=== PATIENT | male | born 1965 | race Caucasian/White ===

== ENCOUNTER 2016-10-23 18:59 | Observation (INO) | payer BC ==
[2016-10-23] MEDS ORDERED: SODIUM CHLORIDE 0.9% 1,000 ML IV ONE (19:41)
--- NOTE | 2016-10-23 19:46 | XR ---
EXAMINATION TYPE: XR chest 2V DATE OF EXAM: 10/23/2016 COMPARISON: 02/07/2014 HISTORY: 50-year-old male with chest pain TECHNIQUE: PA and lateral views FINDINGS: The heart is normal size. Aorta and pulmonary vasculature are within normal limits. Diffuse interstit ial prominence is unchanged from 2013. No consolidation or pleural effusion. Prior labral repair on t he left. IMPRESSION: Chronic changes, possible chronic bronchitis/asthma. No acute change.
[2016-10-23 19:52] LABS: Basophils # (A) 0.1 k/uL (0-0.2); Basophils % (A) 1 %; CH 33.2; CHCM 35.8; Eosinophils # (A) 0.1 k/uL (0-0.7); Eosinophils % (A) 1 %; HCT 41.9 % (39.0-53.0); HDW 2.66; Luc # (Auto) 0.13; Luc % (Auto) 1; Lymphocytes # (A) 2.1 k/uL (1.0-4.8); Lymphocytes % (A) 21 %; MCH 33.2 pg (25.0-35.0); MCHC 35.7 g/dL (31.0-37.0); Monocytes # (A) 0.6 k/uL (0-1.0); Monocytes % (A) 6 %; Neutrophils % (A) 70 %; RBC 4.51 m/uL (4.30-5.90); RDW 13.2 % (11.5-15.5); WBC (Perox) 10.08
[2016-10-23 20:05] LABS: Partial Thromboplastin Time 24.1 sec (22.0-30.0); Prothrombin Time 9.9 sec (9.0-12.0)
[2016-10-23 20:11] LABS: ALT 44 U/L (21-72); AST 32 U/L (17-59); Alkaline Phosphatase 138 U/L (38-126); Anion Gap 14 mmol/L; Blood Urea Nitrogen 14 mg/dL (9-20); Calcium 9.5 mg/dL (8.4-10.2); Carbon Dioxide 23 mmol/L (22-30); Chloride 104 mmol/L (98-107); Glucose 144 mg/dL (74-99); Magnesium 1.6 mg/dL (1.6-2.3); Non-African American GFR(MDRD) >60 (>60 ml/min/1.73 sqM); Potassium 4.1 mmol/L (3.5-5.1); Sodium 141 mmol/L (137-145); Total Bilirubin 0.6 mg/dL (0.2-1.3); Total Protein 7.1 g/dL (6.3-8.2)
[2016-10-23 20:12] LABS: Creatine Kinase 149 U/L (55-170)
[2016-10-23 20:25] LABS: Creatine Kinase MB 1.1 ng/mL (0.0-2.4); Troponin I <0.012 ng/mL (0.000-0.034)
[2016-10-23] MEDS ORDERED: ONDANSETRON 4 MG/2 ML VIAL IVP PRN (21:17)
[2016-10-23] MEDS ORDERED: NALOXONE 0.4 MG/ML 1 ML VIAL IV PRN (21:17)
[2016-10-23] MEDS ORDERED: ACETAMINOPHEN TAB 325 MG TAB PO PRN (21:17)
[2016-10-23] MEDS ORDERED: ASPIRIN 325 MG TAB PO STA (21:21)
[2016-10-23] MEDS ORDERED: DEXTROSE 5%-0.45% NACL 1,000 ML IV SCH (21:30)
--- NOTE | 2016-10-23 22:18 | ED ---
General Adult HPI - General Chief complaint: Chest Pain Stated complaint: chest pain Time Seen by Provider: 10/23/16 19:15 Source: patient, family, RN notes reviewed Mode of arrival: wheelchair Limitations: no limitations - History of Present Illness Initial comments: 50-year-old male presenting with chief complaint of chest tightness and heaviness. Patient was out on his boat throughout the day today, he was drinking a few beers. This is not atypical for the patient. He then had chest pain that was associated with right upper extremity tingling. Patient also reports shortness of breath with this episode. Denies any abdominal pain. Patient does have a history of diabetes, hypertension, hypercholesterolemia, and CAD. Patient states he did have a heart catheterization approximately 20 years ago, there was no intervention at that time. At the time my evaluation patient denies chest pain. Reports that while in his bathroom this evening he felt lightheaded, and collapsed just for a moment. This was not associated with chest pain. - Related Data Home Medications Medication Instructions Recorded Confirmed metFORMIN HCL [Metformin HCl ER] 1,000 mg PO BID 12/02/15 10/23/16 Atorvastatin (Unknown Dose) 1 tab PO HS 10/23/16 10/23/16 Fluticasone Nasal [place] [Flonase 1 spray EA NOSTRIL BID 10/23/16 10/23/16 Nasal [place]] amLODIPine [Norvasc] 10 mg PO DAILY 10/23/16 10/23/16 glipiZIDE [Glucotrol] 10 mg PO AC-BID 10/23/16 10/23/16 Allergies Allergy/AdvReac Type Severity Reaction Status Date / Time codeine Allergy Anaphylaxis Verified 10/23/16 19:46 Review of Systems ROS Statement: Those systems with pertinent positive or pertinent negative responses have been documented in the HPI. ROS Other: All systems not noted in ROS Statement are negative. Past Medical History Past Medical History: Diabetes Mellitus, Hyperlipidemia, Hypertension, Myocardial Infarction ([place]), Sleep Apnea/CPAP/BIPAP Additional Past Medical History / Comment(s): NV AGE 31, 1996 EST, TOLD R/T STRESS. OCC MILD HEARTBURN. USES CPAP. Last Myocardial Infarction Date:: 1996 History of Any Multi-Drug Resistant Organisms: None Reported Past Surgical History: Appendectomy, Back Surgery, Heart Catheterization, Orthopedic Surgery Additional Past Surgical History / Comment(s): LT Shoulder, LT Knee. Past Anesthesia/Blood Transfusion Reactions: No Reported Reaction Past Psychological History: No Psychological Hx Reported Smoking Status: Current every day smoker Past Alcohol Use History: Occasional Past Drug Use History: Cocaine, Marijuana - Past Family History Mother Family Medical History: No Reported History General Exam Limitations: no limitations General appearance: alert, in no apparent distress Head exam: Present: atraumatic, normocephalic Eye exam: Present: normal appearance, PERRL ENT exam: Present: normal exam, mucous membranes moist Neck exam: Present: normal inspection. Absent: tenderness Respiratory exam: Present: normal lung sounds bilaterally. Absent: respiratory distress, wheezes Cardiovascular Exam: Present: regular rate, normal rhythm GI/Abdominal exam: Present: soft. Absent: distended, tenderness Extremities exam: Present: normal inspection, normal capillary refill. Absent: pedal edema Neurological exam: Present: alert, oriented X3, CN II-XII intact. Absent: motor sensory deficit Psychiatric exam: Present: normal affect, normal mood Skin exam: Present: warm, dry. Absent: cyanosis, diaphoretic Course Vital Signs 10/23/16 10/23/16 10/23/16 19:03 20:04 21:21 Temperature 97.5 F L 98.1 F Pulse Rate 74 98 90 Respiratory 20 18 18 Rate Blood Pressure 132/96 167/77 141/69 O2 Sat by Pulse 98 98 96 Oximetry - Reevaluation(s) Reevaluation #1: 10/23/16 22:15 On reevaluation, patient denies chest pain or shortness of breath. EKG Findings - EKG Comments: EKG Findings:: EKG shows normal sinus rhythm with ventricular rate 99, ME interval 146, QS duration 76, QTC [address] there is no [address] segment elevation, no T-wave abnormality Medical Decision Making - Medical Decision Making 50-year-old male complaining of chest pain, right upper extremity tingling, mild shortness of breath and syncopal episode. Patient did report chest pain and shortness of breath. The symptoms have resolved. EKG is nonischemic. Laboratory studies including initial cardiac enzymes and d-dimer are normal. Patient remains asymptomatic while in the emergency department. Chest x-ray shows no acute process. Patient will be placed in observation for evaluation of syncope, and chest pain. Cardiology is placed on consult. Cardiac enzymes will be redrawn at 6 hours. - Lab Data Result diagrams: 10/23/16 19:20 10/23/16 19:20 Lab Results 10/23/16 10/23/16 10/23/16 Range/Units 19:20 19:20 19:20 WBC 10.0 (3.8-10.6) k/uL RBC 4.51 (4.30-5.90) m/uL Hgb 15.0 (13.0-17.5) gm/dL Hct 41.9 (39.0-53.0) % MCV 93.0 (80.0-100.0) fL MCH 33.2 (25.0-35.0) pg MCHC 35.7 (31.0-37.0) g/dL RDW 13.2 (11.5-15.5) % Plt Count 207 (150-450) k/uL Neutrophils % 70 % Lymphocytes % 21 % Monocytes % 6 % Eosinophils % 1 % Basophils % 1 % Neutrophils # 7.0 (1.3-7.7) k/uL Lymphocytes # 2.1 (1.0-4.8) k/uL Monocytes # 0.6 (0-1.0) k/uL Eosinophils # 0.1 (0-0.7) k/uL Basophils # 0.1 (0-0.2) k/uL PT (9.0-12.0) sec INR (<1.2) APTT (22.0-30.0) sec D-Dimer (<0.60) mg/L FEU Sodium 141 (137-145) mmol/L Potassium 4.1 (3.5-5.1) mmol/L Chloride 104 (98-107) mmol/L Carbon Dioxide 23 (22-30) mmol/L Anion Gap 14 mmol/L BUN 14 (9-20) mg/dL Creatinine 1.00 (0.66-1.25) mg/dL Est GFR (MDRD) Af Amer >60 (>60 ml/min/1.73 sqM) Est GFR (MDRD) Non-Af >60 (>60 ml/min/1.73 sqM) Glucose 144 H (74-99) mg/dL Calcium 9.5 (8.4-10.2) mg/dL Magnesium 1.6 (1.6-2.3) mg/dL Total Bilirubin 0.6 (0.2-1.3) mg/dL AST 32 (17-59) U/L ALT 44 (21-72) U/L Alkaline Phosphatase 138 H (38-126) U/L Total Creatine Kinase 149 (55-170) U/L CK-MB (CK-2) 1.1 (0.0-2.4) ng/mL CK-MB (CK-2) Rel Index 0.7 Troponin I <0.012 (0.000-0.034) ng/mL NT-Pro-B Natriuret Pep pg/mL Total Protein 7.1 (6.3-8.2) g/dL Albumin 4.3 (3.5-5.0) g/dL Lipase 256 (23-300) U/L Serum Alcohol mg/dL 10/23/16 10/23/16 10/23/16 Range/Units 19:20 19:20 19:20 WBC (3.8-10.6) k/uL RBC (4.30-5.90) m/uL Hgb (13.0-17.5) gm/dL Hct (39.0-53.0) % MCV (80.0-100.0) fL MCH (25.0-35.0) pg MCHC (31.0-37.0) g/dL RDW (11.5-15.5) % Plt Count (150-450) k/uL Neutrophils % % Lymphocytes % % Monocytes % % Eosinophils % % Basophils % % Neutrophils # (1.3-7.7) k/uL Lymphocytes # (1.0-4.8) k/uL Monocytes # (0-1.0) k/uL Eosinophils # (0-0.7) k/uL Basophils # (0-0.2) k/uL PT 9.9 (9.0-12.0) sec INR 1.0 (<1.2) APTT 24.1 (22.0-30.0) sec D-Dimer 0.55 (<0.60) mg/L FEU Sodium (137-145) mmol/L Potassium (3.5-5.1) mmol/L Chloride (98-107) mmol/L Carbon Dioxide (22-30) mmol/L Anion Gap mmol/L BUN (9-20) mg/dL Creatinine (0.66-1.25) mg/dL Est GFR (MDRD) Af Amer (>60 ml/min/1.73 sqM) Est GFR (MDRD) Non-Af (>60 ml/min/1.73 sqM) Glucose (74-99) mg/dL Calcium (8.4-10.2) mg/dL Magnesium (1.6-2.3) mg/dL Total Bilirubin (0.2-1.3) mg/dL AST (17-59) U/L ALT (21-72) U/L Alkaline Phosphatase (38-126) U/L Total Creatine Kinase (55-170) U/L CK-MB (CK-2) (0.0-2.4) ng/mL CK-MB (CK-2) Rel Index Troponin I (0.000-0.034) ng/mL NT-Pro-B Natriuret Pep 26 pg/mL Total Protein (6.3-8.2) g/dL Albumin (3.5-5.0) g/dL Lipase (23-300) U/L Serum Alcohol mg/dL 10/23/16 Range/Units 20:30 WBC (3.8-10.6) k/uL RBC (4.30-5.90) m/uL Hgb (13.0-17.5) gm/dL Hct (39.0-53.0) % MCV (80.0-100.0) fL MCH (25.0-35.0) pg MCHC (31.0-37.0) g/dL RDW (11.5-15.5) % Plt Count (150-450) k/uL Neutrophils % % Lymphocytes % % Monocytes % % Eosinophils % % Basophils % % Neutrophils # (1.3-7.7) k/uL Lymphocytes # (1.0-4.8) k/uL Monocytes # (0-1.0) k/uL Eosinophils # (0-0.7) k/uL Basophils # (0-0.2) k/uL PT (9.0-12.0) sec INR (<1.2) APTT (22.0-30.0) sec D-Dimer (<0.60) mg/L FEU Sodium (137-145) mmol/L Potassium (3.5-5.1) mmol/L Chloride (98-107) mmol/L Carbon Dioxide (22-30) mmol/L Anion Gap mmol/L BUN (9-20) mg/dL Creatinine (0.66-1.25) mg/dL Est GFR (MDRD) Af Amer (>60 ml/min/1.73 sqM) Est GFR (MDRD) Non-Af (>60 ml/min/1.73 sqM) Glucose (74-99) mg/dL Calcium (8.4-10.2) mg/dL Magnesium (1.6-2.3) mg/dL Total Bilirubin (0.2-1.3) mg/dL AST (17-59) U/L ALT (21-72) U/L Alkaline Phosphatase (38-126) U/L Total Creatine Kinase (55-170) U/L CK-MB (CK-2) (0.0-2.4) ng/mL CK-MB (CK-2) Rel Index Troponin I (0.000-0.034) ng/mL NT-Pro-B Natriuret Pep pg/mL Total Protein (6.3-8.2) g/dL Albumin (3.5-5.0) g/dL Lipase (23-300) U/L Serum Alcohol <10 mg/dL Disposition Clinical Impression: Chest pain, Syncope Disposition: ADMITTED IP TO THIS HOSP Condition: Stable Referrals: Buster Hardy III, MD [Primary Care Provider] - 1-2 days Decision to Admit Reason: Admit from EC Decision Date: 10/23/16 Decision Time: 21:20
[2016-10-23 23:10] VITALS: BMI 31.8
[2016-10-24 01:31] LABS: Creatine Kinase 121 U/L (55-170)
[2016-10-24 01:45] LABS: Creatine Kinase MB 0.8 ng/mL (0.0-2.4); Troponin I <0.012 ng/mL (0.000-0.034)
[2016-10-24 07:21] LABS: Anion Gap 9 mmol/L; Blood Urea Nitrogen 14 mg/dL (9-20); Calcium 8.6 mg/dL (8.4-10.2); Carbon Dioxide 22 mmol/L (22-30); Chloride 109 mmol/L (98-107); Glucose 68 mg/dL (74-99); Non-African American GFR(MDRD) >60 (>60 ml/min/1.73 sqM); Potassium 4.4 mmol/L (3.5-5.1); Sodium 140 mmol/L (137-145)
[2016-10-24 07:25] LABS: Basophils # (A) 0.1 k/uL (0-0.2); Basophils % (A) 1 %; CH 32.9; CHCM 34.8; Eosinophils # (A) 0.1 k/uL (0-0.7); Eosinophils % (A) 1 %; HCT 43.2 % (39.0-53.0); HDW 2.73; HGB 14.6 gm/dL (13.0-17.5); Luc # (Auto) 0.16; Luc % (Auto) 2; Lymphocytes # (A) 2.3 k/uL (1.0-4.8); Lymphocytes % (A) 27 %; MCHC 33.7 g/dL (31.0-37.0); MCV 94.9 fL (80.0-100.0); Monocytes # (A) 0.7 k/uL (0-1.0); Monocytes % (A) 8 %; Neutrophils # (A) 5.4 k/uL (1.3-7.7); Neutrophils % (A) 62 %; RBC 4.55 m/uL (4.30-5.90); WBC 8.8 k/uL (3.8-10.6); WBC (Perox) 8.59
[2016-10-24 07:28] LABS: Creatine Kinase 107 U/L (55-170)
[2016-10-24 07:41] LABS: Creatine Kinase MB 0.9 ng/mL (0.0-2.4); Troponin I <0.012 ng/mL (0.000-0.034)
--- NOTE | 2016-10-24 11:29 | ECHOF ---
Referral Reason:chest pain MEASUREMENTS -------- HEIGHT: 172.7 cm WEIGHT: 90.7 kg BP: IVSd: 1.1 cm (0.6 - 1.1) LVIDd: 4.3 cm (3.9 - 5.3) LVPWd: 0.7 cm (0.6 - 1.1) IVSs: 1.3 cm LVIDs: 3.3 cm LVPWs: 1.5 cm LAESV Index (A-L): 28.62 ml/m Ao Diam: 2.8 cm (2.0 - 3.7) AV Cusp: 2.2 cm (1.5 - 2.6) LA Diam: 3.9 cm (2.7 - 3.8) MV EXCURSION: 15.965 mm (> 18.000) MV EF SLOPE: 122 mm/s (70 - 150) EPSS: 0.1 cm MV E Jose Daniel: 0.75 m/s MV DecT: 140 ms MV A Jose Daniel: 0.43 m/s MV E/A Ratio: 1.73 RAP: 5.00 mmHg RVSP: 21.93 mmHg FINDINGS -------- Sinus rhythm. This was a technically adequate study. There is borderline concentric left ventricular hypertrophy. Overall left ventricular systolic function is normal with, an EF between 55 - 60 %. The right ventricle is normal in size. Normal LA size by volume 22+/-6 ml/m2. The right atrial size is normal. The aortic valve is trileaflet, and appears structurally normal. No aortic stenosis or regurgitation. Mild mitral regurgitation is present. Mild tricuspid regurgitation present. There is no evidence of pulmonary hypertension. The right ventricular systolic pressure, as measured by Doppler, is 21.93mmHg. There is no pulmonic regurgitation present. The aortic root size is normal. There is no pericardial effusion. CONCLUSIONS -------- 1. There is borderline concentric left ventricular hypertrophy. 2. Overall left ventricular systolic function is normal with, an EF between 55 - 60 %. 3. Mild mitral regurgitation is present. 4. Mild tricuspid regurgitation present. 5. There is no evidence of pulmonary hypertension. 6. The right ventricular systolic pressure, as measured by Doppler, is 21.93mmHg. DEFENSE ANALYST: Kayleigh Hillman RDCS
[2016-10-24] MEDS ORDERED: glipiZIDE 10 MG TAB PO SCH (11:45)
[2016-10-24 12:26] VITALS: BP 123/75; PULSE 65; RESP 16; TEMP 97.8
[2016-10-24 12:34] LABS: Glucose,Whole Blood 104 mg/dL (75-99)
--- NOTE | 2016-10-24 13:09 | P.HPIM ---
History of Present Illness H&P Date: 10/24/16 Chief Complaint: Chest pain This is a 50-year-old gentleman with a previous history of myocardial infarction in his 30s comes in to the hospital with this episode of difficulty breathing for a few hours thereafter noticed some chest tightness. Patient states that he was out on the boat and it is been drinking all day however this is his normal recent activity Patient went home thereafter tried to cool down with taken a shower patient apparently had a syncopal episode while he was in the shower Patient came in to the emergency room was admitted to the hospital. States that the chest pain resolved on its own. Chest pain was midsternal in location nonradiating no alleviating or exacerbating factors were reported States that he smokes about half a pack of At this time patient states that he was able to ambulate without much difficulty She was seen by her regulatory analyst underwent a stress test Review of Systems All systems: negative (Noted in HPI) Past Medical History Past Medical History: Diabetes Mellitus, Hyperlipidemia, Hypertension, Myocardial Infarction ([place]), Sleep Apnea/CPAP/BIPAP Additional Past Medical History / Comment(s): [place] AGE 31, 1996 EST, TOLD R/T STRESS. OCC MILD HEARTBURN. USES CPAP. Last Myocardial Infarction Date:: 1996 History of Any Multi-Drug Resistant Organisms: None Reported Past Surgical History: Appendectomy, Back Surgery, Heart Catheterization, Orthopedic Surgery Additional Past Surgical History / Comment(s): LT Shoulder, LT Knee. Past Anesthesia/Blood Transfusion Reactions: No Reported Reaction Smoking Status: Current every day smoker - Past Family History Mother Family Medical History: Hypertension Father Family Medical History: CVA/TIA Additional Family Medical History / Comment(s): at 43 Medications and Allergies Home Medications Medication Instructions Recorded Confirmed Type Atorvastatin [Lipitor] 40 mg PO HS 10/23/16 10/23/16 History Fluticasone Nasal [place] [Flonase 1 spray EA NOSTRIL BID 10/23/16 10/23/16 History Nasal [place]] Lisinopril [Zestril] 10 mg PO HS 10/23/16 10/23/16 History amLODIPine [Norvasc] 10 mg PO DAILY 10/23/16 10/23/16 History glipiZIDE [Glucotrol] 10 mg PO AC-BID 10/23/16 10/23/16 History metFORMIN HCL ER [Glucophage Xr] 2,000 mg PO W/SUPPER 10/24/16 10/24/16 History Allergies Allergy/AdvReac Type Severity Reaction Status Date / Time codeine Allergy Anaphylaxis Verified 10/23/16 22:57 Physical Exam Vitals: Vital Signs Temp Pulse Pulse Resp BP BP Pulse Ox 10/24/16 12:00 97.8 F 65 16 123/75 95 10/24/16 08:00 97.7 F 68 18 116/71 97 10/24/16 07:39 96 10/24/16 04:00 97.5 F L 60 15 115/61 98 10/23/16 23:25 18 10/23/16 22:50 97.9 F 80 15 155/73 94 L 10/23/16 22:34 90 18 134/68 98 10/23/16 21:21 98.1 F 90 18 141/69 96 10/23/16 20:04 98 18 167/77 98 10/23/16 19:03 97.5 F L 74 20 132/96 98 Intake and Output 10/23/16 10/24/16 10/24/16 22:59 06:59 14:59 Other: Voiding Method Toilet # Voids 1 1 Weight 92.8 kg 95.2 kg Physical exam Gen. appearance oriented 3 in no distress Neck is supple no JVD Lungs good air entry clear to auscultation no rhonchi or wheezing Heart S1-S2 heard regular rate and rhythm no murmurs appreciated Abdomen is soft nontender no organomegaly bowel sounds are intact Neurologically cranial nerves II-12 grossly intact no focal motor or sensory deficits noted Skin no abnormalities appreciated Results CBC & Chem 7: 10/24/16 06:36 10/24/16 06:36 Labs: Abnormal Lab Results - Last 24 Hours (Table) 10/23/16 10/24/16 10/24/16 Range/Units 19:20 06:36 12:31 Chloride 109 H (98-107) mmol/L Glucose 144 H 68 L (74-99) mg/dL POC Glucose (mg/dL) 104 H (75-99) mg/dL Alkaline Phosphatase 138 H (38-126) U/L Thrombosis Risk Factor Assmnt - Choose All That Apply Each Factor Represents 1 point: Age 41-60 years Thrombosis Risk Factor Assessment Total Risk Factor Score: 1 Thrombosis Risk Factor Assessment Level: Low Risk Assessment and Plan Plan: Atypical chest pain Syncope likely vagal Essential hypertension Diabetes mellitus type 2 Ongoing tobacco use Plan Patient is a moderate risk underwent a stress test is negative patient will be discharged home Smoking cessation was discussed
--- NOTE | 2016-10-24 13:16 | P.CRDCN ---
History of Present Illness Consult date: 10/24/16 Consult reason: chest pain History of present illness: This is a 50-year-old male who presented to the emergency department last night after experiencing chest pain while boating. He states he was sitting in the boat not exerting himself when he started to experience extreme shortness of breath accompanied by chest heaviness. He was drinking alcohol and was unclear whether it was related to food since he hadn't eaten all day. So he ate but the pain subsided. Shortness of breath grew increasingly worse until arriving in the ED which at that time he was placed on oxygen and he states the pain and shortness of breath went away. He has a history of previous [place] when he was 31 years old. He states he underwent a cardiac catheterization at that time and was told that he had arterial spasm and required no stenting. He has undergone two outpatient stress tests since then both unremarkable. His risk factors include diabetes mellitus, hyperlipidemia, hypertension, smoker. In examination he is seen sleeping in bed in no acute distress. He denies any further episodes of chest pain since arrival to the hospital. D-dimer was 0.55 , BNP 26, troponins negative 3. Review of Systems REVIEW OF SYSTEMS: Patient denies any chest discomfort. No shortness of breath. No diaphoresis. He denies headache, dizziness, blurred vision, double vision. No dyspnea on exertion. Patient denies any stomach discomfort. No nausea, vomiting. No hematochezia. No hematemesis. Denies any black stools or blood in his stools. No syncope. No palpitations. No cough. No recent fever or chills. Denies dysuria or hematuria. No muscle weakness or numbness. Past Medical History Past Medical History: Diabetes Mellitus, Hyperlipidemia, Hypertension, Myocardial Infarction ([place]), Sleep Apnea/CPAP/BIPAP Additional Past Medical History / Comment(s): [place] AGE 31, 1996 EST, TOLD R/T STRESS. OCC MILD HEARTBURN. USES CPAP. Last Myocardial Infarction Date:: 1996 History of Any Multi-Drug Resistant Organisms: None Reported Past Surgical History: Appendectomy, Back Surgery, Heart Catheterization, Orthopedic Surgery Additional Past Surgical History / Comment(s): LT Shoulder, LT Knee. Past Anesthesia/Blood Transfusion Reactions: No Reported Reaction Smoking Status: Current every day smoker Past Alcohol Use History: Occasional Additional Drug Use History / Comment(s): Patient states he used to use marijuana and cocaine but has not many years. - Past Family History Mother Family Medical History: Hypertension Father Family Medical History: CVA/TIA Additional Family Medical History / Comment(s): at 43 Medications and Allergies Home Medications Medication Instructions Recorded Confirmed Type Atorvastatin [Lipitor] 40 mg PO HS 10/23/16 10/23/16 History Fluticasone Nasal [place] [Flonase 1 spray EA NOSTRIL BID 10/23/16 10/23/16 History Nasal [place]] Lisinopril [Zestril] 10 mg PO HS 10/23/16 10/23/16 History amLODIPine [Norvasc] 10 mg PO DAILY 10/23/16 10/23/16 History glipiZIDE [Glucotrol] 10 mg PO AC-BID 10/23/16 10/23/16 History metFORMIN HCL ER [Glucophage Xr] 2,000 mg PO W/SUPPER 10/24/16 10/24/16 History Allergies Allergy/AdvReac Type Severity Reaction Status Date / Time codeine Allergy Anaphylaxis Verified 10/23/16 22:57 Physical Exam Vitals: Vital Signs Temp Pulse Pulse Resp BP BP Pulse Ox 10/24/16 12:00 97.8 F 65 16 123/75 95 10/24/16 08:00 97.7 F 68 18 116/71 97 10/24/16 07:39 96 10/24/16 04:00 97.5 F L 60 15 115/61 98 10/23/16 23:25 18 10/23/16 22:50 97.9 F 80 15 155/73 94 L 10/23/16 22:34 90 18 134/68 98 10/23/16 21:21 98.1 F 90 18 141/69 96 10/23/16 20:04 98 18 167/77 98 10/23/16 19:03 97.5 F L 74 20 132/96 98 Intake and Output 10/23/16 10/24/16 10/24/16 22:59 06:59 14:59 Other: Voiding Method Toilet # Voids 1 1 Weight 92.8 kg 95.2 kg GENERAL: This is a 50-year-old male in no apparent distress at the time of my examination. HEENT: Head is atraumatic, normocephalic. Pupils are equal, round. Sclerae anicteric. Conjunctivae are clear. Mucous membranes of the mouth are moist. Neck is supple. There is no jugular venous distention. No carotid bruit is heard. LUNGS: Clear to auscultation and precussion. No chest wall tenderness is noted on palpation or with deep breathing. HEART: Regular rate and rhythm without murmurs, rubs or gallops. S1 and S2 heard. ABDOMEN: Soft, nontender. Bowel sounds are heard. No organomegaly noted. EXTREMITIES: 2+ peripheral pulses with no evidence of peripheral edema and no calf tenderness noted]. NEUROLOGIC: Patient is awake, alert and oriented x3. Results 10/24/16 06:36 10/24/16 06:36 Cardiac Enzymes 10/23/16 10/23/16 10/24/16 Range/Units 19:20 19:20 00:41 AST 32 (17-59) U/L CK-MB (CK-2) 1.1 0.8 (0.0-2.4) ng/mL Troponin I <0.012 <0.012 (0.000-0.034) ng/mL 10/24/16 Range/Units 06:36 AST (17-59) U/L CK-MB (CK-2) 0.9 (0.0-2.4) ng/mL Troponin I <0.012 (0.000-0.034) ng/mL Coagulation 10/23/16 Range/Units 19:20 PT 9.9 (9.0-12.0) sec APTT 24.1 (22.0-30.0) sec CBC 10/23/16 10/24/16 Range/Units 19:20 06:36 WBC 10.0 8.8 (3.8-10.6) k/uL RBC 4.51 4.55 (4.30-5.90) m/uL Hgb 15.0 14.6 (13.0-17.5) gm/dL Hct 41.9 43.2 (39.0-53.0) % Plt Count 207 170 (150-450) k/uL Comprehensive Metabolic Panel 10/23/16 10/24/16 Range/Units 19:20 06:36 Sodium 141 140 (137-145) mmol/L Potassium 4.1 4.4 (3.5-5.1) mmol/L Chloride 104 109 H (98-107) mmol/L Carbon Dioxide 23 22 (22-30) mmol/L BUN 14 14 (9-20) mg/dL Creatinine 1.00 0.81 (0.66-1.25) mg/dL Glucose 144 H 68 L (74-99) mg/dL Calcium 9.5 8.6 (8.4-10.2) mg/dL AST 32 (17-59) U/L ALT 44 (21-72) U/L Alkaline Phosphatase 138 H (38-126) U/L Total Protein 7.1 (6.3-8.2) g/dL Albumin 4.3 (3.5-5.0) g/dL Current Medications Generic Name Dose Route Start Last Admin Trade Name Freq PRN Reason Stop Dose Admin Acetaminophen 650 mg 10/23/16 21:17 Tylenol Tab PO Q6HR PRN Mild Pain or Fever > 100.5 Glipizide 10 mg 10/24/16 11:45 10/24/16 12:52 Glucotrol PO 10 mg AC-BID JACK Administration Dextrose/Sodium Chloride 1,000 mls @ 75 mls/hr 10/23/16 21:30 10/23/16 23:49 Dextrose 5%-1/2ns Iv Soln IV 75 mls/hr .[id number] JACK Administration Naloxone HCl 0.2 mg 10/23/16 21:17 Narcan IV Q2M PRN Opioid Reversal Ondansetron HCl 4 mg 10/23/16 21:17 Zofran IVP Q8HR PRN Nausea And Vomiting Intake and Output 10/23/16 10/24/16 10/24/16 22:59 06:59 14:59 Other: Voiding Method Toilet # Voids 1 1 Weight 92.8 kg 95.2 kg 10/24/16 06:36 10/24/16 06:36 - Imaging and Cardiology Stress echo: image reviewed Echo: report reviewed - EKG Interpretation EKG: sinus rhythm, normal ST/T (No old EKG for comparison) Assessment and Plan Plan: ASSESSMENT 1. Chest pain, atypical. 2. Essential hypertension, controlled. 3. Diabetes mellitus. 4. Hyperlipidemia. 5. History of coronary artery spasm. PLAN Patient underwent exercise stress echo as well as resting echocardiogram. Echocardiogram reveals ejection fraction 55-60% with borderline left ventricular hypertrophy. Stress echo was normal, shows no signs of ST-T changes. From a cardiac standpoint the patient is stable for discharge home. He can follow-up with Dr. VC Tiwari in 2 weeks. Nurse Practitioner note has been reviewed, I agree with a documented findings and plan of care. Patient was seen and examined.
--- NOTE | 2016-10-24 15:15 | EST ---
Referral Reason:chest pain MEASUREMENTS -------- HEIGHT: 172.7 cm WEIGHT: 90.7 kg BP: 116/64 FINDINGS -------- Utilizing the standard Tuan protocol the patient was exercised for 10 minutes, 0 seconds, achieving a maximum heart rate of 144 , which is 85 % of predicted maximal heart rate. There was physiologic heart rate and blood pressure response to exercise. Max Heart Rate: 144 % of Max Predicted Heart Rate: 85 Rest Heart Rate: 102 Rest BP: 116/64 Max BP: 196/69 Mets Achieved: 11.6 The test was stopped because of shortness of breath. The test was stopped because the target heart rate was achieved. Sinus rhythm. In response to stress, the ECG showed no ST-T wave changes (see exercise report for details). LV size, wall thickness and systolic function are normal, with an EF of 60%. Echo images were acquired at peak stress which demonstrated appropriate augmentation of all left ventricular segments with slight decrease in cavity size. CONCLUSIONS -------- 1. Sinus rhythm. 2. In response to stress, the ECG showed no ST-T wave changes (see exercise report for details). 3. LV size, wall thickness and systolic function are normal, with an EF of 60%. 4. Echo images were acquired at peak stress which demonstrated appropriate augmentation of all left ventricular segments with slight decrease in cavity size. 5. No 2D echocardiographic evidence of inducible ischemia to achieved workload. CONCENTRATOR OPERATOR: Donnie Stewart RDCS MTDD
== END 2016-10-24 14:49 | disposition home or self-care (01) ==
LOC: EC 18:59 → 3OBS 21:17
PROVIDERS: ADMIT Internal Medicine; ATTEND Internal Medicine
DX: R07.89 Other chest pain (principal); R07.2 Precordial pain; R06.02 Shortness of breath; R55 Syncope and collapse; R20.2 Paresthesia of skin; I10 Essential (primary) hypertension; E11.9 Type 2 diabetes mellitus without complications; F17.200 Nicotine dependence, unspecified, uncomplicated; E78.00 Pure hypercholesterolemia, unspecified; E78.5 Hyperlipidemia, unspecified; I20.1 Angina pectoris with documented spasm; I25.10 Atherosclerotic heart disease of native coronary artery without angina pectoris; G47.30 Sleep apnea, unspecified; Z99.89 Dependence on other enabling machines and devices; Z79.84 Long term (current) use of oral hypoglycemic drugs; Z79.51 Long term (current) use of inhaled steroids; Z79.899 Other long term (current) drug therapy; Z88.5 Allergy status to narcotic agent; Z82.49 Family history of ischemic heart disease and other diseases of the circulatory system; Z82.3 Family history of stroke
CPT/HCPCS: 99285; 96360 ×2; 36415; 94760; 93005; 93017; 93306; 93350; 85379; 83880; 80053; 80048; 82550 ×2; 82553 ×2; 83690; 83735; 84484 ×2; 85025 ×2; 85610; 85730; 80320; 71020; G0378 ×2

== ENCOUNTER 2019-12-20 20:44 | Emergency (ER) | payer BC, OTHER ==
[2019-12-20 21:01] VITALS: RESP 18
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
[2019-12-20] MEDS ORDERED: SODIUM CHLORIDE 0.9% 1,000 ML IV STA (21:10)
[2019-12-20] MEDS ORDERED: KETOROLAC 15 MG/ML 1 ML VIAL IVP STA (21:11)
[2019-12-20] MEDS ORDERED: LIDOCAINE 5% PATCH TOPICAL STA (21:12)
[2019-12-20] MEDS ORDERED: CYCLOBENZAPRINE 10 MG TAB PO STA (21:12)
--- NOTE | 2019-12-20 22:10 | CT ---
EXAMINATION TYPE: CT lumbar spine wo con DATE OF EXAM: 12/20/2019 COMPARISON: None HISTORY: History of laminectomy right paraspinal tenderness CT DLP: 1086 mGycm CONTRAST: None TECHNIQUE: CT of the lumbar spine is performed on a spiral scan at 3 mm thick sections. Reconstructed images are performed in the coronal and sagittal planes. FINDINGS: T12-L1: No focal disc herniation or significant disc bulge is evident. No spinal canal stenosis or neural foraminal stenosis is present. L1-L2: No focal disc herniation or significant disc bulge is evident. No spinal canal stenosis or n eural foraminal stenosis is present L2-L3: Broad Based disc bulge has mild anterior thecal sac compression. No AP spinal canal stenosis p resent. Neural foramen are patent. L3-L4: Broad-based disc bulge is present with anterior thecal sac flattening. No AP spinal canal sten osis present. Mild ligamentum flavum laxity is present. Neural foramen are patent. L4-L5: Mild broad based disc bulge has mild to moderate anterior thecal sac compression. No AP spinal canal stenosis is present. Neural foramen are patent. L5-S1: Laminectomy has been performed at this level. There is fullness through the left epidural spac e. A sequestered disc could be considered. Granulation tissue should be considered. Severe bilateral foraminal stenosis present. Disc space narrowing is present. Vertebral alignment appears normal. IMPRESSION: 1.Acute changes not identified. 2. Degenerative disc changes and postsurgical changes in the left L5-S1 spinal canal. Additional work up with contrast MRI is recommended. 3. Mild disc bulging present L2-3, L3-4, L4-5
[2019-12-20] MEDS ORDERED: GABAPENTIN 300 MG CAP PO STA (22:16)
[2019-12-20 23:00] VITALS: BP 150/90; PULSE 96; TEMP 97.7
== END 2019-12-20 23:00 | disposition home or self-care (01) ==
LOC: EC 20:44
DX: M51.26 Other intervertebral disc displacement, lumbar region (principal); E11.9 Type 2 diabetes mellitus without complications; E78.5 Hyperlipidemia, unspecified; I10 Essential (primary) hypertension; I25.2 Old myocardial infarction; G47.33 Obstructive sleep apnea (adult) (pediatric); Z79.84 Long term (current) use of oral hypoglycemic drugs; Z79.899 Other long term (current) drug therapy; Z88.5 Allergy status to narcotic agent; Z99.89 Dependence on other enabling machines and devices; Z95.5 Presence of coronary angioplasty implant and graft; X50.0XXA Overexertion from strenuous movement or load, initial encounter
CPT/HCPCS: 72131; 99284; 96374; 96361; J1885

== ENCOUNTER → 2021-03-01 | Outpatient (CLI) | payer BC ==
[2021-03-01 14:00] LABS: African American GFR (CKD) >90 (>60 ml/min/1.73 sqM); Anion Gap 10 mmol/L; Blood Urea Nitrogen 25 mg/dL (9-20); Carbon Dioxide 21 mmol/L (22-30); Chloride 105 mmol/L (98-107); Non-African American GFR(CKD) 85 (>60 ml/min/1.73 sqM); Potassium 4.3 mmol/L (3.5-5.1); Sodium 136 mmol/L (137-145)
[2021-03-01 14:20] LABS: HCT 46.5 % (39.0-53.0); HGB 16.8 gm/dL (13.0-17.5); Hyperchromasia Slight; MCH 33.4 pg (25.0-35.0); MCHC 36.2 g/dL (31.0-37.0); MCV 92.5 fL (80.0-100.0); Mean Platelet Volume 7.7; Platelet Count 198 k/uL (150-450); RBC 5.03 m/uL (4.30-5.90); RDW 13.1 % (11.5-15.5); WBC 8.6 k/uL (3.8-10.6)
== END | disposition home or self-care (01) ==
LOC: LABPAT 13:21
PROVIDERS: ATTEND Internal Medicine Interventional Cardiology
DX: Z01.812 Encounter for preprocedural laboratory examination (principal); R07.9 Chest pain, unspecified
CPT/HCPCS: 36415; 80051; 82565; 84520; 85027

== ENCOUNTER 2021-03-11 06:32 | Day surgery (SDC) | payer BC ==
[2021-03-09 11:59] VITALS: BMI 31.7
[~2021-03-11 06:32] MED LIST: ALPRAZolam 0.25 MG TAB PO PRN; ALPRAZolam 0.5 MG TAB PO PRN; ASPIRIN 325 MG TAB PO STA; ATORVASTATIN 80 MG TAB PO STA; NITROGLYCERIN SL TABS 0.4 MG TAB SUBLINGUAL PRN; SODIUM CHLORIDE 0.9% 1,000 ML in EMPTY BAG 1 BAG IV SCH
[2021-03-11 06:59] VITALS: RESP 18; TEMP 97.8
[2021-03-11 07:13] LABS: Glucose,Whole Blood 150 mg/dL (75-99)
[2021-03-11] MEDS ORDERED: VERAPAMIL 2.5 MG/ML 2 ML AMP ONE (07:29)
[2021-03-11] MEDS ORDERED: LIDOCAINE 1% INJ 10MG/ML (20 ML MDV) ONE (07:29)
[2021-03-11] MEDS ORDERED: HEPARIN SODIUM 1,000 UN/ML (10ML VL) ONE (07:42)
[2021-03-11] MEDS ORDERED: MIDAZOLAM 2 MG/2 ML VIAL IV ONE (08:19)
[2021-03-11] MEDS ORDERED: LIDOCAINE 1% INJ 10MG/ML (20 ML MDV) SQ ONE (08:23)
[2021-03-11] MEDS: VERAPAMIL SYRINGE (5 MG/10 ML) INTRAARTER ONE ×2 (08:24→08:31)
[2021-03-11] MEDS ORDERED: HEPARIN SODIUM 1,000 UN/ML (10ML VL) IV ONE (08:27)
[2021-03-11] MEDS ORDERED: IOPAMIDOL-370 125ML BTL INJ ONE (08:31)
[2021-03-11] MEDS ORDERED: RX INFO: IV CONTRAST WAS GIVEN 1 EACH MISC MISCELLANE PRN (08:38)
[2021-03-11] MEDS ORDERED: SODIUM CHLORIDE 0.9% 1,000 ML IV SCH (08:45)
--- NOTE | 2021-03-11 12:54 | CC ---
CARDIAC CATHETERIZATION REPORT DATE OF SERVICE: 03/09/2021 PERFORMING PHYSICIAN: Manuel Bailey M.D. PROCEDURE PERFORMED: Selective right and left coronary angiogram. INDICATION: Chest discomfort in this 55-year-old gentleman with diabetes and hypertension and dyslipidemia who underwent myocardial perfusion imaging stress test and that revealed an anterior ischemia. APPROACH: Right radial artery. COMPLICATIONS: None. LEVEL OF SEDATION: Moderate, with sedation length of 11 minutes. PROCEDURE DESCRIPTION: After obtaining informed consent, the patient was brought to the cardiac solder making laborer. The right radial artery was cannulated using micropuncture technique. The micropuncture wire passed easily. Then I placed a 6-[place] sheath at the right radial artery. I gave the patient 2 mg of verapamil IA and 6000 units of heparin IV. Selective right and left coronary angiogram was performed using JR4 and JL3.5 catheters. Left heart catheterization was not performed but attempted. The procedure was completed without any complication. SELECTIVE CORONARY ANGIOGRAM: The RCA is a medium-caliber vessel. It is a dominant vessel. The RCA is angiographically normal. It bifurcates distally into PDA and PLV branches. Both appeared to be angiographically normal. Left main is angiographically normal. It bifurcates into LCX and LAD. The LCX is a large-caliber vessel. It is a nondominant vessel. The LCX is angiographically normal. It gives rise to first and second obtuse marginal branches. Both appeared to be angiographically normal. The first OM appeared to work as a ramus intermedius. The LAD is a medium-caliber vessel. The LAD proximally has mild disease only. The mid LAD has mild disease only. It gives rise to first and second diagonal branches. Both appeared to be angiographically normal. LAD distally appeared to be angiographically normal. CONCLUSION: 1. Mild nonobstructive coronary artery disease. 2. Possible component of coronary vasospasm noted. POST-PROCEDURE MANAGEMENT: 1. Medical treatment. 2. Follow up with the patient. MMODL / IJN: [id number] /
[2021-03-11 13:19] VITALS: BP 141/85; PULSE 86
== END 2021-03-11 12:49 | disposition home or self-care (01) ==
LOC: CATHCVL 06:32
PROVIDERS: ATTEND Internal Medicine Interventional Cardiology
DX: I25.10 Atherosclerotic heart disease of native coronary artery without angina pectoris (principal); E11.9 Type 2 diabetes mellitus without complications; I10 Essential (primary) hypertension; E78.5 Hyperlipidemia, unspecified; Z82.49 Family history of ischemic heart disease and other diseases of the circulatory system; F17.210 Nicotine dependence, cigarettes, uncomplicated; I08.1 Rheumatic disorders of both mitral and tricuspid valves; Z79.899 Other long term (current) drug therapy; Z20.822 Contact with and (suspected) exposure to COVID-19
CPT/HCPCS: 93454; 87635; C1894; J2250; J2001; J1644; Q9967

== ENCOUNTER 2023-03-28 10:14 | Emergency (ER) | payer BC ==
[2023-03-28 10:38] VITALS: RESP 18; TEMP 100
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
--- NOTE | 2023-03-28 11:18 | XR ---
EXAMINATION TYPE: XR chest 2V DATE OF EXAM: 03/28/2023 11:01 AM CLINICAL INDICATION:Male, 57 years old with history of SOB; [facility] COMPARISON: Chest radiographs from 11/15/2021. TECHNIQUE: XR chest 2V Frontal and lateral views of the chest. FINDINGS: Lungs/Pleura: Low lung volumes are present. There is no evidence of pleural effusion, focal consolida tion, or pneumothorax. Pulmonary vascularity: Unremarkable. Heart/mediastinum: Cardiomediastinal silhouette is unremarkable. Musculoskeletal: No acute osseous pathology. Other findings: None IMPRESSION: Low lung volumes with a generalized hazy appearance which could represent atelectasis.
[2023-03-28 12:34] LABS: Basophils # (A) 0.1 k/uL (0-0.2); Basophils % (A) 1 %; Eosinophils % (A) 0 %; HCT 49.4 % (39.0-53.0); HGB 17.2 gm/dL (13.0-17.5); Lymphocytes # (A) 0.7 k/uL (1.0-4.8); Lymphocytes % (A) 5 %; MCH 32.5 pg (25.0-35.0); MCHC 34.9 g/dL (31.0-37.0); Mean Platelet Volume 8.1; Monocytes # (A) 0.6 k/uL (0-1.0); Monocytes % (A) 5 %; Neutrophils # (A) 10.5 k/uL (1.3-7.7); Neutrophils % (A) 87 %; Platelet Count 153 k/uL (150-450); RBC 5.31 m/uL (4.30-5.90); RDW 12.2 % (11.5-15.5)
[2023-03-28] MEDS ORDERED: ACETAMINOPHEN TAB 325 MG TAB PO STA (12:48)
[2023-03-28] MEDS ORDERED: IBUPROFEN 800 MG TAB PO STA (12:48)
[2023-03-28 12:58] LABS: ALT 30 U/L (4-49); AST 31 U/L (17-59); African American GFR (CKD) >90 (>60 ml/min/1.73 sqM); Albumin 4.9 g/dL (3.5-5.0); Alkaline Phosphatase 134 U/L (38-126); Anion Gap 18 mmol/L; Blood Urea Nitrogen 21 mg/dL (9-20); Calcium 9.9 mg/dL (8.4-10.2); Carbon Dioxide 18 mmol/L (22-30); Chloride 99 mmol/L (98-107); Glucose 134 mg/dL (74-99); Non-African American GFR(CKD) 89 (>60 ml/min/1.73 sqM); Potassium 4.5 mmol/L (3.5-5.1); Sodium 135 mmol/L (137-145); Total Bilirubin 1.1 mg/dL (0.2-1.3); Total Protein 8.1 g/dL (6.3-8.2)
[2023-03-28 13:37] VITALS: BP 126/78; PULSE 90
== END 2023-03-28 13:36 | disposition home or self-care (01) ==
LOC: EC 10:14
DX: J10.1 Influenza due to other identified influenza virus with other respiratory manifestations (principal); E11.9 Type 2 diabetes mellitus without complications; E78.5 Hyperlipidemia, unspecified; I10 Essential (primary) hypertension; I21.9 Acute myocardial infarction, unspecified; G47.30 Sleep apnea, unspecified; F17.200 Nicotine dependence, unspecified, uncomplicated; Z79.82 Long term (current) use of aspirin; Z79.899 Other long term (current) drug therapy; Z88.5 Allergy status to narcotic agent; Z20.822 Contact with and (suspected) exposure to COVID-19
CPT/HCPCS: 36415; 71046; 80053; 85025; 87636; 93005; 99285

== ENCOUNTER 2024-03-24 23:22 | Observation (INO) | payer BC ==
[2024-03-24] MEDS: SODIUM CHLORIDE 0.9% 1,000 ML IV ONE (23:38)
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
[2024-03-24] MEDS: ONDANSETRON 4 MG/2 ML VIAL IVP STA (23:42)
[2024-03-24] MEDS: HYDROmorphone 0.5 MG/0.5 ML SYRINGE IVP STA (23:43)
[2024-03-24] MEDS: FAMOTIDINE 20 MG/2 ML VIAL IV STA (23:45)
[2024-03-25 00:32] LABS: Basophils # (A) 0.1 k/uL (0-0.2); Basophils % (A) 0 %; Eosinophils # (A) 0.1 k/uL (0-0.7); Eosinophils % (A) 1 %; HGB 15.9 gm/dL (13.0-17.5); Lymphocytes # (A) 1.4 k/uL (1.0-4.8); Lymphocytes % (A) 11 %; MCH 32.2 pg (25.0-35.0); MCHC 34.6 g/dL (31.0-37.0); MCV 93.2 fL (80.0-100.0); Mean Platelet Volume 7.2; Monocytes # (A) 0.6 k/uL (0-1.0); Monocytes % (A) 5 %; Neutrophils # (A) 10.8 k/uL (1.3-7.7); Neutrophils % (A) 82 %; Platelet Count 169 k/uL (150-450); RBC 4.94 m/uL (4.30-5.90); RDW 12.4 % (11.5-15.5); WBC 13.2 k/uL (3.8-10.6)
[2024-03-25 00:41] LABS: ALT 23 U/L (4-49); AST 21 U/L (17-59); African American GFR (CKD) >90 (>60 ml/min/1.73 sqM); Albumin 4.3 g/dL (3.5-5.0); Alcohol <10 mg/dL; Alkaline Phosphatase 153 U/L (38-126); Anion Gap 13 mmol/L; Blood Urea Nitrogen 19 mg/dL (9-20); Calcium 8.9 mg/dL (8.4-10.2); Carbon Dioxide 21 mmol/L (22-30); Chloride 104 mmol/L (98-107); Glucose 168 mg/dL (74-99); Lipase 254 U/L (23-300); Magnesium 1.8 mg/dL (1.6-2.3); Non-African American GFR(CKD) >90 (>60 ml/min/1.73 sqM); Potassium 4.1 mmol/L (3.5-5.1); Sodium 138 mmol/L (137-145); Total Bilirubin 0.4 mg/dL (0.2-1.3); Total Protein 6.9 g/dL (6.3-8.2)
[2024-03-25 00:44] LABS: INR 0.9 (<1.2); Partial Thromboplastin Time 23.2 sec (22.0-30.0); Prothrombin Time 10.3 sec (10.0-12.5)
[2024-03-25] MEDS: HYDROmorphone 1 MG/ML 1 ML SYRINGE IVP STA ×2 (01:03→04:18)
--- NOTE | 2024-03-25 02:05 | XR ---
EXAM: XR Chest, 1 View CLINICAL HISTORY: ITS.REASON XR Reason: chest pain TECHNIQUE: Frontal view of the chest. COMPARISON: No relevant prior studies available. FINDINGS: Lungs: No consolidation or mass. Pleural space: No acute findings. Heart: Mild cardiomegaly. Bones/joints: No acute findings. IMPRESSION: No acute cardiopulmonary process.
--- NOTE | 2024-03-25 02:56 | CT ---
EXAM: CT Angiography Chest Abdomen and Pelvis With Intravenous Contrast CLINICAL HISTORY: ITS.REASON CT Reason: CP/BP TECHNIQUE: Axial computed tomographic angiography images of the chest abdomen and pelvis with intravenous contrast. CTDI is 11.1 mGy and DLP is 730.2 mGy- cm. This CT exam was performed using one or more of the following dose reduction techniques: automated exposure control, adjustment of the mA and/or kV according to patient size, and/or use of iterative reconstruction technique. MIP reconstructed images were created and reviewed. COMPARISON: None. FINDINGS: Mild/moderate cardiomegaly. Left coronary arterial/LAD diffuse atherosclerosis (series 201 image 16).. VASCULATURE: Thoracic aorta: Moderate calcification of the aortic arch/descending aorta. Thoracic aorta and pulmonary arteries are normal in caliber. No main/central pulmonary arterial embolism. Distally evaluation is suboptimal due to technical factors. Abdominal Aorta: Extensive densely calcified/noncalcified atherosclerosis. No acute findings. No abdominal aortic aneurysm. No dissection. Celiac trunk and mesenteric arteries: Small focal calcification at the ostium of the celiac trunk with <50% luminal narrowing. Moderately bulky calcification of the proximal SMA with 50-70% luminal narrowing (series 504 image 84, series 201 image 52). No acute findings. No occlusion. Renal arteries: Single right and left renal artery with small ostial foci of calcifications. No acute findings. No occlusion or significant stenosis. Iliac arteries: Heavy calcification of the proximal most right common iliac artery with about 70% stenosis (series 502 image 70, series 201 image 76). No acute findings. No occlusion. Diffuse calcified/noncalcified atherosclerosis of bilateral common femoral arteries with 50-70% stenosis RT>LT. Images of the runoff lower extremities not obtained/not provided. Ancillary findings: CHEST Lung : Central airways are patent. Bilateral bronchial wall cuffing and interstitial/septal thickening with predominantly basilar patchy parenchymal groundglass opacities, concerning for mild pulmonary edema.. No mass. No consolidation. No significant mediastinal/hilar lymphadenopathy. Small likely reactive subcarinal and right hilar lymph nodes. No pleural or pericardial effusion. ABDOMEN: Liver: Diffuse fatty hepatic infiltration. Demonstrates multiple ill- defined enhancing lesions throughout the liver, largest is 2.6 cm in the right hepatic lobe anteriorly, benign versus malignant (series 501 image 83, series 502 image 36). Gallbladder and bile ducts: Distended gallbladder. A few small calcified stones. No ductal dilation. Pancreas: Unremarkable. No ductal dilation. No mass. Spleen: Unremarkable. No splenomegaly. Adrenals: Thickening of the left adrenal gland. Unremarkable right adrenal gland. Kidneys and ureters: Anteriorly a 2.3 cm left renal cyst.. No hydronephrosis. No solid mass. Stomach and bowel: A distended stomach filled with ingested food debris and gas. Probably a small gastroesophageal reflux. Nonspecific mucosal wall thickening of the hepatic flexure, colitis versus incomplete distention. Diffuse segmental spasm versus colitis of the transverse and descending colon (series 501 image 41, series 502,82). Moderate volume stool seen in the right side colon and in rectosigmoid. PELVIS: Appendix: No acute findings in the region of the appendix. Bladder: Distended bladder.. No mass. Reproductive: Unremarkable as visualized. ABDOMEN and PELVIS: Intraperitoneal space: No significant fluid collection. No free air. Bones/joints: No acute fracture. No dislocation. At L5-S1 moderately advanced degenerative spondylitic changes seen. Soft tissues: Unremarkable. Lymph nodes: Unremarkable. No enlarged lymph nodes. Other findings: . IMPRESSION: Cardiomegaly with probably mild pulmonary edema.. Diffuse calcified/noncalcified atherosclerotic disease of the thoracoabdominal aortoiliac vasculature and branch vessels as described above. No aortic aneurysm or dissection. Significant atherosclerosis of the aortic bifurcation vessels/iliac arteries RT>LT. Multiple hepatic enhancing lesions, benign versus malignant. Recommend follow-up. Nonspecific mucosal thickening of the hepatic flexure, acute colitis versus incomplete distention. Diffuse segmental spasm versus colitis of the transverse and descending colon. Clinical correlation is advised. Distended gallbladder. Cholelithiasis. Additional findings as described above. _
[2024-03-25] MEDS ORDERED: ACETAMINOPHEN TAB 325 MG TAB PO PRN (03:37)
[2024-03-25] MEDS ORDERED: NALOXONE 0.4 MG/ML 1 ML VIAL IV PRN (03:37)
[2024-03-25] MEDS ORDERED: ONDANSETRON 4 MG/2 ML VIAL IVP PRN (03:37)
[2024-03-25] MEDS ORDERED: DEXTROSE 50% SYRINGE 50 ML IVP PRN ×2 (07:29)
[2024-03-25 07:34] LABS: Glucose,Whole Blood 137 mg/dL (70-110)
[2024-03-25] MEDS: INSULIN ASPART (NovoLOG) 100 UNIT/ML VIAL SQ SCH (07:34)
[2024-03-25] MEDS: HYDROmorphone 0.5 MG/0.5 ML SYRINGE IVP PRN (07:39)
[2024-03-25] MEDS: amLODIPine 10 MG TAB PO SCH (08:15)
[2024-03-25] MEDS: ATORVASTATIN 40 MG TAB PO SCH (08:15)
[2024-03-25] MEDS: ASPIRIN 81 MG PO SCH (08:15)
[2024-03-25] MEDS: lisinopriL 10 MG TAB PO SCH (08:16)
[2024-03-25] MEDS ORDERED: METOPROLOL TARTRATE 25 MG TAB PO SCH (09:00)
[2024-03-25] MEDS ORDERED: AMINOPHYLLINE 500 MG/20 ML VIAL IV PRN (09:35)
[2024-03-25] MEDS ORDERED: REGADENOSON 0.4 MG/5 ML SYRINGE IV PRN (09:35)
[2024-03-25] MEDS ORDERED: CAFFEINE CITRATE 60 MG/3 ML VIAL IV PRN (09:35)
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
--- NOTE | 2024-03-25 12:45 | P.CRDCN ---
History of Present Illness History of present illness: HISTORY OF PRESENT ILLNESS: This is a 58-year-old male with a past medical history significant for coronary artery disease, hypertension, hyperlipidemia, diabetes, nicotine dependence and obesity. Patient follows in the office with Dr. Bailey but has not been seen in the office since February 2021. We have been asked to see the patient in consultation for chest pain. Patient examined at the bedside in the emergency room. Patient states he has been having chest pain on and off for the past few weeks. He states the pain is in the middle of his chest and also radiates into his back. He states there is nothing really specific that brings it on. He does have chest tightness with deep inspiration. He also has chest pain with palpation of his left lower chest. He does report a history of chronic back pain and is scheduled to have an MRI of his neck and his back in a few days. DIAGNOSTICS: - EKG reveals sinus bradycardia with no signs of acute ischemia. Repeat EKG reveals sinus mechanism with no signs of acute ischemia - Chest xray negative for acute findings - Laboratory data: WBC 13.2. Hemoglobin 15.9. Platelet count 169. Sodium 138. Potassium 4.1. BUN 19. Creatinine 0.92. Troponin negative x 2. Alcohol less than 10. - Current home cardiac medications include amlodipine 10 mg daily, lisinopril 10 mg daily, Jardiance 25 mg daily, metoprolol succinate 25 mg daily, atorvastatin 40 mg daily - Most recent echocardiogram obtained in January 2021 revealed ejection fraction 55 to 60%, mild LVH, trace MR, trace TR - Cardiac catheterization history: February 2021 revealing mild nonobstructive CAD with possible component of coronary vasospasm REVIEW OF SYSTEMS: At the time of my exam: CONSTITUTIONAL: Denies fever or chills. HEENT: Denies blurred vision, vision changes, or eye pain. Denies hemoptysis CARDIOVASCULAR: Denies chest pain. Denies orthopnea. Denies PND. Denies palpitations RESPIRATORY: Denies shortness of breath. GASTROINTESTINAL: Denies abdominal pain. Denies nausea or vomiting. HEMATOLOGIC: Denies bleeding disorders. GENITOURINARY: Denies any blood in urine. SKIN: Denies pruitis. Denies rash. PHYSICAL EXAM: VITAL SIGNS: Reviewed. GENERAL: Well-developed in no acute distress. HEENT: Head is normocephalic. Pupils are equal, round. Sclerae anicteric. Mucous membranes of the mouth are moist. Neck supple. No JVD or thyromegaly LUNGS: Respirations even and unlabored. Lungs essentially clear to auscultation bilaterally. HEART: Regular rate and rhythm. S1 and S2 heard. ABDOMEN: Soft. Nondistended. Nontender. EXTREMITIES: Normal range of motion. No clubbing or cyanosis. Peripheral pulses intact. No lower extremity edema NEUROLOGIC: Awake and alert. Oriented x 3. ASSESSMENT: Chest pain Mild nonobstructive CAD, per cath 2020 with possible component of vasospasm Hypertension Hyperlipidemia Diabetes Chronic back pain Nicotine dependence Obesity: BMI 34.9 Daily alcohol use, 2-4 per day PLAN: An acute coronary but has been ruled out Obtain 2D echo to assess cardiac structure and function Resume home cardiac medications Patient to undergo Lexiscan stress test today Further recommendations pending patient course Nurse practitioner note has been reviewed by physician. Signing provider agrees with the documented findings, assessment, and plan of care documented by BANDOLEER [employer]ENER STAMPER as a scribe. Past Medical History Past Medical History: Diabetes Mellitus, Hyperlipidemia, Hypertension, My ocardial Infarction ([place]), Sleep Apnea/CPAP/BIPAP Additional Past Medical History / Comment(s): [place] AGE 31, 1996 EST, TOLD R/T STRESS. OCC MILD HEARTBURN. USES CPAP. Last Myocardial Infarction Date:: 1996 History of Any Multi-Drug Resistant Organisms: None Reported Past Surgical History: Appendectomy, Back Surgery, Heart Catheterization, Orthopedic Surgery Additional Past Surgical History / Comment(s): LT Shoulder, LT Knee. Past Anesthesia/Blood Transfusion Reactions: No Reported Reaction Past Psychological History: No Psychological Hx Reported Smoking Status: Current every day smoker Past Alcohol Use History: Occasional - Past Family History Mother Family Medical History: Hypertension Father Family Medical History: CVA/TIA Additional Family Medical History / Comment(s): at 43 Medications and Allergies Home Medications Medication Instructions Recorded Confirmed Type Atorvastatin [Lipitor] 40 mg PO DAILY 10/23/16 03/25/24 History Fluticasone Nasal Irene [Flonase 2 spray EA NOSTRIL BID 10/23/16 03/25/24 History Nasal Irene] amLODIPine [Norvasc] 10 mg PO DAILY 10/23/16 03/25/24 History lisinopriL [Zestril] 10 mg PO DAILY 10/23/16 03/25/24 History Dulaglutide [Trulicity] 1.5 mg SQ MO 12/20/19 03/25/24 History Empagliflozin [Jardiance] 25 mg PO DAILY 12/20/19 03/25/24 History tadalafiL [Cialis] 20 mg PO DAILY PRN 03/09/21 03/25/24 History Ibuprofen [Motrin] 800 mg PO TID PRN 03/25/24 03/25/24 History Metoprolol Succinate (ER) [Toprol 25 mg PO DAILY 03/25/24 03/25/24 History Xl] Testosterone [Androgel 1%] 1 packet TRANSDERM DAILY 03/25/24 03/25/24 History metFORMIN HCL ER [Glucophage XR] 500 mg PO BID 03/25/24 03/25/24 History Allergies Allergy/AdvReac Type Severity Reaction Status Date / Time codeine Allergy Anaphylaxis Verified 03/25/24 11:22 Physical Exam Vitals: Vital Signs Temp Pulse Resp BP Pulse Ox 03/25/24 08:14 92 18 137/77 97 03/25/24 06:00 80 18 137/80 988 H 03/25/24 05:00 83 16 141/82 96 03/25/24 04:00 80 19 134/70 96 03/25/24 03:00 86 21 147/81 99 03/25/24 02:00 87 22 136/84 95 03/25/24 01:33 73 18 137/78 96 03/25/24 00:33 77 22 140/76 97 03/24/24 23:33 62 18 118/82 97 03/24/24 23:30 98.0 F 55 L 18 114/73 97 Intake and Output 03/24/24 03/25/24 03/25/24 22:59 06:59 14:59 Other: Weight 95.254 kg Results 03/25/24 00:07 03/25/24 00:07 Cardiac Enzymes 03/25/24 03/25/24 03/25/24 Range/Units 00:07 00:07 06:47 AST 21 (17-59) U/L Troponin I <0.012 <0.012 (0.000-0.034) ng/mL Coagulation 03/25/24 Range/Units 00:07 PT 10.3 (10.0-12.5) sec APTT 23.2 (22.0-30.0) sec CBC 03/25/24 Range/Units 00:07 WBC 13.2 H (3.8-10.6) k/uL RBC 4.94 (4.30-5.90) m/uL Hgb 15.9 (13.0-17.5) gm/dL Hct 46.0 (39.0-53.0) % Plt Count 169 (150-450) k/uL Comprehensive Metabolic Panel 03/25/24 Range/Units 00:07 Sodium 138 (137-145) mmol/L Potassium 4.1 (3.5-5.1) mmol/L Chloride 104 (98-107) mmol/L Carbon Dioxide 21 L (22-30) mmol/L BUN 19 (9-20) mg/dL Creatinine 0.92 (0.66-1.25) mg/dL Glucose 168 H (74-99) mg/dL Calcium 8.9 (8.4-10.2) mg/dL AST 21 (17-59) U/L ALT 23 (4-49) U/L Alkaline Phosphatase 153 H (38-126) U/L Total Protein 6.9 (6.3-8.2) g/dL Albumin 4.3 (3.5-5.0) g/dL Current Medications Generic Name Dose Route Start Last Admin Trade Name Freq PRN Reason Stop Dose Admin Acetaminophen 650 mg 03/25/24 03:37 Acetaminophen Tab 325 Mg Tab PO Q6HR PRN Mild Pain or Fever > 100.5 Amlodipine Besylate 10 mg 03/25/24 09:00 03/25/24 08:15 Amlodipine 10 Mg Tab PO 10 mg DAILY JACK Administration Aspirin 81 mg 03/25/24 09:00 03/25/24 08:15 Aspirin 81 Mg PO 81 mg QAM JACK Administration Atorvastatin Calcium 40 mg 03/25/24 09:00 03/25/24 08:15 Atorvastatin 40 Mg Tab PO 40 mg DAILY JACK Administration Dextrose/Water 25 ml 03/25/24 07:29 Dextrose 50% Syringe 50 Ml IVP PER PROTOCOL PRN Hypoglycemia Protocol Dextrose/Water 50 ml 03/25/24 07:29 Dextrose 50% Syringe 50 Ml IVP PER PROTOCOL PRN Hypoglycemia Protocol Hydromorphone HCl 0.5 mg 03/25/24 03:37 03/25/24 07:39 Hydromorphone 0.5 Mg/0.5 Ml Syringe IVP 0.5 mg Q3HR PRN Administration Moderate Pain (Scale 4 to 6) Insulin Aspart 0 unit 03/25/24 07:30 03/25/24 07:34 Insulin Aspart (Novolog) 100 Unit/Ml Vial SQ Not Given ACHS JACK Protocol Lisinopril 10 mg 03/25/24 09:00 03/25/24 08:16 Lisinopril 10 Mg Tab PO 10 mg DAILY JACK Administration Metoprolol Tartrate 25 mg 03/25/24 09:00 Metoprolol Tartrate 25 Mg Tab PO QAM JACK Naloxone HCl 0.2 mg 03/25/24 03:37 Naloxone 0.4 Mg/Ml 1 Ml Vial IV Q2M PRN Opioid Reversal Ondansetron HCl 4 mg 03/25/24 03:37 Ondansetron 4 Mg/2 Ml Vial IVP Q8HR PRN Nausea And Vomiting Intake and Output 03/24/24 03/25/24 03/25/24 22:59 06:59 14:59 Other: Weight 95.254 kg 03/25/24 00:07 03/25/24 00:07
[2024-03-25 12:54] VITALS: RESP 16
[2024-03-25 13:06] LABS: Glucose,Whole Blood 144 mg/dL (70-110)
[2024-03-25 13:07] LABS: Appearance,Urine Clear (Clear); Bilirubin,Urine Negative (Negative); Blood,Urine Negative (Negative); Color,Urine Colorless; Glucose,Urine (UA) 4+ (Negative); Ketones,Urine Negative (Negative); Leukocyte Esterase,Urine Negative (Negative); Nitrite,Urine Negative (Negative); PH, Urine 5.5 (5.0-8.0); Protein,Urine Negative (Negative); Specific Gravity,Urine 1.042 (1.001-1.035); Urobilinogen,Urine <2.0 mg/dL (<2.0)
--- NOTE | 2024-03-25 13:39 | NM ---
EXAMINATION TYPE: NM stress lexiscan cardiolite DATE OF EXAM: 03/25/2024 COMPARISON: NONE CLINICAL INDICATION: Male, 58 years old with history of chest pain; TECHNIQUE: After the intravenous administration of 8.38 mCi Tc 99m Sestamibi - Cardiolite resting SP ECT images acquired 55 minutes post injection. The patient received 0.4mg Lexiscan, 20.8 mCi Tc 99m Sestamibi - Stress images obtained [address] injection FINDINGS: Review of stress and rest SPECT images demonstrates some decreased perfusion along the anteroseptal w all appear more pronounced on rest suggesting attenuation artifact. Otherwise, no distinct perfusion abnormality. Gated analysis shows normal wall motion but with an estimated left ventricular ejection fraction calculated at 47 %. TID upper limits of normal 1.05. IMPRESSION: 1. Suggestion of some attenuation artifact along the anteroseptal wall. 2. Estimated LVEF mildly diminished at 47%. Further evaluation is clinically indicated. 3. Otherwise, no scintigraphic evidence for reversible ischemia. [facility], , 03/25/2024 1:37 PM
--- NOTE | 2024-03-25 14:06 | P.DS ---
Providers Date of admission: 03/25/24 03:37 Expected date of discharge: 03/25/24 Attending physician: Niko Damon Consults: 03/25/24 03:37 Consult Physician Routine Consulting Provider: Manuel Bailey Consult Reason/Comments: CP, SYncope Do you want consulting provider notified?: Yes Primary care physician: Buster Kapadia [facility] Course: Discharge Diagnosis: Atypical chest pain History of nonobstructive CAD Hypertension Dyslipidemia Type 2 diabetes Nicotine dependence Multiple hepatic enhancing lesions noted on CT Colitis versus spasm noted on CT Chronic back pain Hospital Course: 58-year-old male with history of nonobstructive CAD, nicotine dependence, type 2 diabetes, hypertension, dyslipidemia presenting with left lower chest pain. In the ED, temperature was 98, pulse 55, respiratory rate 18, blood pressure 114/73, saturating at 97% on room air. WBC 13.2, hemoglobin 15.9, platelet 169, creatinine 0.92, troponin negative x 3, lipase 254, glucose 168, serum alcohol negative. EKG independently interpreted, shows normal sinus rhythm with early repolarization. Chest x-ray independently interpreted, did not show any acute process. Thoracic aorta CT showed cardiomegaly with probably mild pulmonary edema, atherosclerotic disease of the thoracoabdominal aorta and iliac vasculature, no dissection or aneurysm, multiple hepatic enhancing lesions, benign versus malignant, outpatient follow-up possible spasm versus colitis involving:, Cholelithiasis. Patient being admitted for further chest pain workup. Cardiology consulted. Lexiscan stress test negative. Patient being discharged home. Follow-up outpatient with PCP. Patient seen and examined at bedside. Vital signs reviewed and stable. General: Nontoxic, no distress, appears at stated age Derm: Warm, dry Head: Atraumatic, normocephalic, symmetric Eyes: EOMI, no lid lag, anicteric sclera Mouth: No lip lesion, mucus membranes moist Cardiovascular: S1S2 reg, no murmur Lungs: CTA bilateral, no rhonchi, no rales, no accessory muscle use Abdominal: Soft, nontender to palpation, no guarding, no appreciable organomegaly Ext: No gross muscle atrophy, no edema, no contractures Neuro: CN II-XI grossly intact, no focal neuro deficits Psych: Alert, oriented, appropriate affect A total of 33 minutes of time were spent preparing this complex discharge summary. Patient was discharged on 03/25/2024 at 1404. Patient Condition at Discharge: Stable Plan - Discharge Summary New Discharge Prescriptions: New Aspirin 81 mg PO QAM #90 tab Continue Fluticasone Nasal [place] [Flonase Nasal [place]] 2 spray EA NOSTRIL BID amLODIPine [Norvasc] 10 mg PO DAILY lisinopriL [Zestril] 10 mg PO DAILY Atorvastatin [Lipitor] 40 mg PO DAILY Dulaglutide [Trulicity] 1.5 mg SQ MO Empagliflozin [Jardiance] 25 mg PO DAILY metFORMIN HCL ER [Glucophage XR] 500 mg PO BID Testosterone [Androgel 1%] 1 packet TRANSDERM DAILY tadalafiL [Cialis] 20 mg PO DAILY PRN PRN Reason: sexual intercourse Metoprolol Succinate (ER) [Toprol XL] 25 mg PO DAILY Discontinued Ibuprofen [Motrin] 800 mg PO TID PRN PRN Reason: Pain Discharge Medication List Atorvastatin [Lipitor] 40 mg PO DAILY 10/23/16 [History] Fluticasone Nasal [place] [Flonase Nasal [place]] 2 spray EA NOSTRIL BID 10/23/16 [History] amLODIPine [Norvasc] 10 mg PO DAILY 10/23/16 [History] lisinopriL [Zestril] 10 mg PO DAILY 10/23/16 [History] Dulaglutide [Trulicity] 1.5 mg SQ MO 12/20/19 [History] Empagliflozin [Jardiance] 25 mg PO DAILY 12/20/19 [History] tadalafiL [Cialis] 20 mg PO DAILY PRN 03/09/21 [History] Aspirin 81 mg PO QAM #90 tab 03/25/24 [Rx] Metoprolol Succinate (ER) [Toprol XL] 25 mg PO DAILY 03/25/24 [History] Testosterone [Androgel 1%] 1 packet TRANSDERM DAILY 03/25/24 [History] metFORMIN HCL ER [Glucophage XR] 500 mg PO BID 03/25/24 [History] Follow up Appointment(s)/Referral(s): Buster Hardy III, MD [Primary Care Provider] - 1-2 days Patient Instructions/Handouts: Noncardiac Chest Pain (DC) Activity/Diet/Wound Care/Special Instructions: Please see your PCP. Liver lesions noted on CT. will need to repeat in 3 months. Discharge Disposition: HOME SELF-CARE
[2024-03-25 15:22] VITALS: BP 118/75; PULSE 77; TEMP 98.7
--- NOTE | 2024-03-26 07:47 | CA ---
Lexiscan Nuclear Stress Test Report Name: Kurt Huggins Exam Date: 03/25/2024 11:26 Exam Location: [place] Stress Ht (in): 69 Wt (lb): 210 BSA: 2.11 Ordering Phys: Carmina Marte Referring Phys: ROSANNE BUSTAMANTE Technologist: Errol Tierney Age: 58 Gender: M : 1965 Procedure CPT: Indications: Reflex order-Stress test ICD-10 Codes: Patient History: Medications: SEE CHART Meds past 24 hrs: Pretest Chest Pain: STRESS TEST Lexiscan Protocol Exercise Duration (min:sec): 02:[address] Depressions (mm): Angina Score: Bran Score: Resting HR (bpm): 79 Peak HR (bpm): 108 Resting BP (mmHg): 130 / 72 Peak BP (mmHg): 127 / 58 MPHR: 161 Target HR: 137 % MPHR: 67 METS: 1.0 Total Dose: Peak Dose: Atropine: Double Product: 68628 BP Response: Stress Termination: INFUSION COMPLETE Stress Symptoms: NO SYMPTOMS Stress Summary: ECG ANALYSIS Resting ECG: Stress ECG: CONCLUSIONS Non-diagnostic electrocardiogram stress test Dr. Manuel Bailey MD (Electronically Signed) Final Date: 26 March 2024 07:46
[2024-03-26] MEDS ORDERED: METOPROLOL SUCCINATE (ER) 25 MG TAB.ER.24H PO SCH (09:00)
[2024-03-26] MEDS ORDERED: METOPROLOL TARTRATE 25 MG TAB PO SCH (09:00)
[2024-03-26] MEDS ORDERED: ENOXAPARIN 40 MG/0.4 ML SYRINGE SQ SCH (09:00)
== END 2024-03-25 15:24 | disposition home or self-care (01) ==
LOC: EC 23:22 → 6NMEDSUR 03-25 03:37
PROVIDERS: ADMIT Student in an Organized Health Care Education/Training Program; ATTEND Student in an Organized Health Care Education/Training Program
DX: R07.89 Other chest pain (principal); I25.10 Atherosclerotic heart disease of native coronary artery without angina pectoris; I70.0 Atherosclerosis of aorta; I11.9 Hypertensive heart disease without heart failure; I08.1 Rheumatic disorders of both mitral and tricuspid valves; K80.20 Calculus of gallbladder without cholecystitis without obstruction; K76.9 Liver disease, unspecified; E11.9 Type 2 diabetes mellitus without complications; R00.1 Bradycardia, unspecified; E78.5 Hyperlipidemia, unspecified; R55 Syncope and collapse; G89.29 Other chronic pain; M54.9 Dorsalgia, unspecified; F10.90 Alcohol use, unspecified, uncomplicated; R61 Generalized hyperhidrosis; F17.210 Nicotine dependence, cigarettes, uncomplicated; E66.9 Obesity, unspecified; Z68.34 Body mass index [BMI] 34.0-34.9, adult; Z79.85 Long-term (current) use of injectable non-insulin antidiabetic drugs; Z79.84 Long term (current) use of oral hypoglycemic drugs; Z79.82 Long term (current) use of aspirin; Z79.1 Long term (current) use of non-steroidal anti-inflammatories (NSAID); Z79.899 Other long term (current) drug therapy; Z88.5 Allergy status to narcotic agent; Z71.6 Tobacco abuse counseling
CPT/HCPCS: 96376; 96361; 96374; 96375; 99285; 36415; 93005; 93017; 80053; 83690; 83735; 84484; 85025; 85610; 85730; 81003; 80320; 71045; 71275; 74174; 78452; G0378; A9500; J2405; J3490; J1171 ×3; J2785; Q9967

== ENCOUNTER → 2024-03-28 | Outpatient (CLI) | payer BC ==
--- NOTE | 2024-03-28 10:24 | MR ---
EXAMINATION TYPE: MR abi/lspine wo con DATE OF EXAM: 03/28/2024 7:00 AM COMPARISON: None. 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 MRI cervical spine without contrast. HISTORY: Upper extremity radiculopathy and neck pain. FINDINGS: The craniovertebral junction relationships and prevertebral soft tissues are normal. The cervical vertebral segments are normal in height and alignment. There is minimal degenerative disc disease at the C5-6 and C6-7 levels where there is mild disc space narrowing and spondylosis.. There is a small focal disc herniation at the C4-5 level on the right pr obably compromising the right lateral recess. Secondary to posterior disc spur complex at the C5-6 an d C6-7 levels, there is mild cervical stenosis. The cervical cord is normal in size and signal intens ity. There is multilevel neural foraminal stenosis as follows; moderate at C2-3 bilaterally, moderate to s evere at the C3-4 level bilaterally, mild at C4-5 on the right, severe at C4-5 on the left, moderate to severe at C5-6 bilaterally and moderate at C6-7 on the left. IMPRESSION: 1. Mild degenerative disease at C5-6 and C6-7 levels. 2. Small focal disc herniation at the C4-5 level on the right. 3 mild cervical stenosis at the C5-6 and C6-7 levels. 4. Multilevel neural foraminal stenosis as described above. MRI lumbar spine HISTORY: Back pain findings: The lumbar vertebral segments are normal in height and alignment there is no fracture or subluxation. There is moderate degenerative disease at the L5-S1 level where there is moderate disc space narrowin g, circumferential disc bulge and vacuum phenomena. There is a large herniation of the L5-S1 disc pos teriorly.To the left of midline, there is an extruded fragment posterior to S1. There is severe compr omise of the left lateral recess and L5-S1 neural foramina on the left. Secondary to thickening of ligamentum flavum and circumferential disc bulge, there is mild spinal ayaan nosis at the L2-3 level. There is mild facet arthropathy throughout the lumbar spine. There is mild neural foraminal stenosis L5-S1 level on the right. The remaining neuroforamina widely patent. IMPRESSION: 1. Moderate degenerative disease at the L5-S1 level. 2. L5-S1 disc herniation with an extruded fragment on the left with severe compromise of the left lat eral recess and neural foramina. 3. Mild neural foraminal stenosis L5-S1 level on the right. 4. Mild spinal stenosis at the L2-3 level described above. [facility], Workstation: [facility], 03/28/2024 10:21 AM
== END | disposition home or self-care (01) ==
LOC: RADMRIMAIN 05:45
PROVIDERS: ATTEND Family Medicine
DX: M50.121 Cervical disc disorder at C4-C5 level with radiculopathy (principal); M48.02 Spinal stenosis, cervical region; R20.2 Paresthesia of skin; M48.07 Spinal stenosis, lumbosacral region; M51.379 Other intervertebral disc degeneration, lumbosacral region without mention of lumbar back pain or lower extremity pain; M48.061 Spinal stenosis, lumbar region without neurogenic claudication
CPT/HCPCS: 72141; 72148

== ENCOUNTER → 2024-04-02 | Outpatient (CLI) | payer BC ==
--- NOTE | 2024-04-02 10:38 | US ---
EXAMINATION TYPE: US abdomen comp/pelvis limited DATE OF EXAM: 04/02/2024 COMPARISON: CT 03/25/2024 CLINICAL INDICATION: Male, 58 years old with history of R10.13 EPIGAS PAIN K80.20 GALLSTONE R16.0 HEP ATOM; Follow up from recent CT TECHNIQUE: Grayscale color Doppler imaging of the abdomen and pelvis. FINDINGS: EXAM MEASUREMENTS: Liver Length: 17.1 cm Gallbladder Wall: 0.5 cm CBD: 0.3 cm Spleen: 10.6 cm Right Kidney: 10.8 x 5.3 x 5.3 cm Left Kidney: 11.2 x 6.5 x 5.7 cm Pancreas: obscured by overlying midline bowel gas Liver: measures upper limits of normal, attenuating, heterogeneous Gallbladder: multiple stones and sludge, thickened wall CBD: visualized portions wnl, limited by overlying bowel gas Spleen: wnl Right Kidney: wnl Left Kidney: 1.9cm cystic area medial mid pole Upper IVC: wnl Abd Aorta: visualized portions wnl, limited by overlying midline bowel gas Bladder: wnl Bilateral Jets Seen yes IMPRESSION: 1. Borderline hepatomegaly at 17.1 cm with moderate to severe hepatic steatosis. Appropriate clinical management is advised. 2. Cholelithiasis with mild gallbladder wall thickening. No hydropic change or surrounding fluid. Con manager acute chronic cholecystitis. 3. Incidental 1.9 cm benign left renal cortical cyst. [facility], , 04/02/2024 10:36 AM
== END | disposition home or self-care (01) ==
LOC: RADUSWWP 08:31
PROVIDERS: ATTEND Family Medicine
DX: K80.20 Calculus of gallbladder without cholecystitis without obstruction (principal); R16.0 Hepatomegaly, not elsewhere classified; N28.1 Cyst of kidney, acquired; K76.0 Fatty (change of) liver, not elsewhere classified
CPT/HCPCS: 76700; 76857

== ENCOUNTER → 2024-04-20 | Outpatient (CLI) | payer BC ==
--- NOTE | 2024-04-20 10:27 | MR ---
MRCP HISTORY: Epigastric pain. COMPARISON: None. TECHNIQUE: Multiecho multiplanar images of the abdomen were obtained according to MRCP protocol. [place] stases images were generated and reviewed. FINDINGS: There is no biliary ductal dilatation. There are no filling defects within the biliary tree or gallbl adder. The gallstones seen on the prior CT of the chest and pelvis dated 03/25/2024 and on the abdomi nal ultrasound dated 04/02/2024 are not appreciated as filling defects in the current study. There is m oderate diffuse gallbladder wall thickening. There is no pericholecystic fluid. There are no focal masses within the liver, pancreas, spleen or adrenal glands. There is no solid sarath al mass or hydronephrosis. There is mild hepatomegaly. Visualized bowel loops in the upper abdomen are normal in caliber. It is no free intraperitoneal flui d.. IMPRESSION: 1. Diffuse gallbladder wall thickening. The gallstone seen on prior studies as described above not ap preciated on the current study. 2. No biliary ductal dilatation or biliary ductal filling defect 3. Mild hepatomegaly. [facility], Workstation: [facility], 04/20/2024 10:25 AM
== END | disposition home or self-care (01) ==
LOC: RADMRIMAIN 09:15
PROVIDERS: ATTEND Family Medicine
DX: K80.20 Calculus of gallbladder without cholecystitis without obstruction (principal); R74.8 Abnormal levels of other serum enzymes; R10.13 Epigastric pain; K82.8 Other specified diseases of gallbladder; R16.0 Hepatomegaly, not elsewhere classified
CPT/HCPCS: 74181